=== PATIENT | female | born 1970 | race Caucasian/White ===

== ENCOUNTER → 2023-12-02 12:45 | Outpatient (REF) | payer OTHER, SELFPAY | LOC: WDC 12:45 | PROVIDERS: ATTENDING PHYSICIAN Obstetrics & Gynecology; FAMILY PHYSICIAN Family Medicine | DX: Z12.31 Encounter for screening mammogram for malignant neoplasm of breast (principal) | CPT/HCPCS: 77063; 77067 ==

== ENCOUNTER → 2024-08-22 14:11 | Outpatient (REF) | payer OTHER, SELFPAY | LOC: HWRAD 14:11 | PROVIDERS: FAMILY PHYSICIAN Family Medicine | DX: H18.9 Unspecified disorder of cornea (principal); H05.20 Unspecified exophthalmos; H53.2 Diplopia; E05.00 Thyrotoxicosis with diffuse goiter without thyrotoxic crisis or storm | CPT/HCPCS: 70480 ==

== ENCOUNTER → 2024-12-06 12:39 | Outpatient (REF) | payer OTHER, SELFPAY | LOC: WDC 12:39 | PROVIDERS: ATTENDING PHYSICIAN Obstetrics & Gynecology; FAMILY PHYSICIAN Family Medicine | DX: Z12.31 Encounter for screening mammogram for malignant neoplasm of breast (principal) | CPT/HCPCS: 77063; 77067 ==

== ENCOUNTER 2025-02-28 06:16 | Day surgery (SDC) | payer OTHER, SELFPAY | END 2025-02-28 10:48 | disposition home or self-care (01) | LOC: GI 06:16 | PROVIDERS: ATTENDING PHYSICIAN Internal Medicine Gastroenterology | DX: K22.2 Esophageal obstruction (principal); K44.9 Diaphragmatic hernia without obstruction or gangrene; R13.10 Dysphagia, unspecified | CPT/HCPCS: 43249 ==